=== PATIENT | female | born 2000 | race Hispanic/Latino ===

== ENCOUNTER 2025-01-08 01:07 | Emergency (ER) | payer OTHER ==
[~2025-01-08] VITALS: Ht 165.1 cm; Wt 106.2 kg
[2025-01-08] MEDS ORDERED: DIPHTH,PERTUSS(ACELL),TET VAC 0.5 ML SYRINGE IM ONE (01:30)
[2025-01-08 02:17] VITALS: BP 137/96
== END 2025-01-08 02:10 | disposition home or self-care (01) ==
LOC: ED 01:07
DX: S61.411A Laceration without foreign body of right hand, initial encounter (principal); Z91.041 Radiographic dye allergy status; Z23 Encounter for immunization; W45.8XXA Other foreign body or object entering through skin, initial encounter
CPT/HCPCS: 90715